=== PATIENT | female | born 1945 | race Caucasian/White ===

== ENCOUNTER → 2016-05-20 | Outpatient (CLI) | payer MEDICARE ==
[~2016-05-20] MED LIST: ALBU17IN INH; AMLO2.5T PO; ASPI81TA85 PO; ATOR1TAB21 PO; CALC600T7 PO; CELE-19 PO; CHLO125TA PO; CIPR500T89 PO; COMP1PAK PD; DIOV320T PO; FIBE1CHW2 PO; GABA-283 PO; LANS15CA PO; LIPI20TA PO; MELA0.02 PO; METF850T PO; MULT1TAB8 PO; OCUVTAB PO; OMEG100011 PO; SYMB80INH INH; TRAM50TA2 PO; VITA400C97 PO; XANA0.25 PO; ZANA4CAP PO; docusate OR
--- NOTE | 2016-05-22 09:30 | DEXA ---
AP SPINE L1 - L4 1.289 0.8 1.3 LT FEMUR TOTAL 0.970 -0.3 0.4 RT FEMUR TOTAL 0.941 -0.5 0.1 TOTAL BODY TOTAL OTHER DUAL FEMUR FRAX* ASSESSMENT Risk factors: Adult fracture. 10 year probability of fracture Major osteoporotic fracture 12.5 % Hip fracture 0.3 % COMMENTS: Normal bone densitometry of the spine. There is low bone density of the hips. FOLLOW-UP: Recommendation for the next bone density exam: 2 years. YARA
== END ==
LOC: M WHC 13:31
PROVIDERS: ATTEND Family Medicine
DX: Z13.820 Encounter for screening for osteoporosis (principal); M85.9 Disorder of bone density and structure, unspecified

== ENCOUNTER → 2016-05-22 | Outpatient (CLI) | payer MEDICARE | LOC: M ONCR 13:32 | PROVIDERS: ATTEND Radiology Radiation Oncology | DX: C50.811 Malignant neoplasm of overlapping sites of right female breast (principal) ==

== ENCOUNTER → 2016-05-27 | Outpatient (REF) | payer MEDICARE ==
[2016-05-27 19:52] LABS: ANION GAP 11 MEQ/L (8-16); BLOOD UREA NITROGEN 25 MG/DL (7-18); CALCIUM LEVEL 9.6 MG/DL (8.8-10.2); CARBON DIOXIDE LEVEL 27 MEQ/L (21-32); CHLORIDE LEVEL 102 MEQ/L (98-107); CREATININE FOR GFR 0.96 MG/DL (0.55-1.02); GLOMERULAR FILTRATION RATE > 60.0 (>39); GLUCOSE, FASTING 132 MG/DL (83-110); POTASSIUM SERUM 4.3 MEQ/L (3.5-5.1); SODIUM LEVEL 140 MEQ/L (136-145)
== END ==
LOC: M LABNEURO 16:53
PROVIDERS: ATTEND Internal Medicine Cardiovascular Disease
DX: E11.9 Type 2 diabetes mellitus without complications (principal); I10 Essential (primary) hypertension

== ENCOUNTER 2016-07-25 23:06 | Emergency (ER) | payer MEDICARE ==
[~2016-07-25] VITALS: Ht 157.5 cm; Wt 115.7 kg
[2016-07-25] MEDS ORDERED: NS 1,000 ML IV SCH (23:28)
[2016-07-25] MEDS ORDERED: ONDANSETRON 4MG/2ML VIAL (J2405) IV ONE (23:30)
[2016-07-25] MEDS ORDERED: KETOROLAC 30 MG/ML VIAL (J1885) IV ONE (23:30)
[2016-07-25] MEDS ORDERED: fentaNYL 100 MCG/2 ML INJECTION (J3010) IV ONE (23:30)
[2016-07-25 23:54] LABS: BASO % 0.4 % (0.0-1.0); EOS # 0.2 K/mm3 (0.0-0.50); EOS % 1.4 % (0.0-3.0); LARGE UNSTAINED CELL # 0.2 K/mm3 (0.0-0.4); LARGE UNSTAINED CELL % 1.4 % (0.0-4.0); LYMPH # 2.1 K/mm3 (1.5-4.5); LYMPH % 16.9 % (24.0-44.0); MEAN CORPUSCULAR HEMOGLOBIN 28.2 pg (27.0-33.0); MEAN CORPUSCULAR HGB CONC 33.3 g/dl (32.0-36.5); MEAN CORPUSCULAR VOLUME 84.5 fl (80.0-96.0); MONO # 0.4 K/mm3 (0.0-0.8); MONO % 3.4 % (0.0-5.0); NEUTROPHILS # 8.8 K/mm3 (1.8-7.7); NEUTROPHILS % 76.6 % (36.0-66.0); PLATELET COUNT, AUTOMATED 254 k/mm3 (150-450); RED CELL DISTRIBUTION WIDTH 13.6 % (11.5-14.5); WHITE BLOOD COUNT 11.5 K/mm3 (4.0-10.0)
[2016-07-25 23:56] LABS: INR 0.9
--- NOTE | 2016-07-26 | REPUSA ---
CT of the abdomen and pelvis without contrast Clinical statement: Pain. Technique: Multiple axial CT images were obtained from the base of the lungs to the floor of the pelv is utilizing 5 mm axial slices without administration of contrast. Coronal and sagittal reconstructio ns were also obtained. Comparison: 06/29/2015. Findings: Chest: The visualized lung bases are clear. Abdomen: The kidneys are normal in size bilaterally. There is moderate right-sided hydronephrosis and hydroureter, caused by a 1 mm obstructing stone at the right ureterovesical junction. The left renal collecting system is unremarkable. There is diffuse low attenuation of the hepatic parenchyma. The s pleen, pancreas, gallbladder and adrenal glands are unremarkable. The aorta demonstrates normal calib er and contour. There is no abdominal lymphadenopathy or ascites. Pelvis: The bowel is unremarkable, with no obstructive or inflammatory changes. The urinary bladder i s within normal limits. There is no pelvic lymphadenopathy or ascites. The other pelvic structures ap pear unremarkable. Bones: There are no suspicious osseous abnormalities seen. There is moderate degenerative disc diseas e at L5/S1 with small disc osteophyte complex. Impression: 1. Moderate right-sided hydronephrosis and hydroureter caused by a 1 mm obstructing stone at the righ t ureterovesical junction. 2. Diffuse fatty infiltration of the liver. 3. No obstructive or inflammatory bowel changes. 4. Stable moderate degenerative disc disease at L5/S1.
[2016-07-26 00:13] LABS: ALBUMIN 4.1 GM/DL (3.2-5.2); ALBUMIN/GLOBULIN RATIO 1.03 (1.00-1.93); BILIRUBIN,DIRECT 0.1 MG/DL (0.0-0.2); BILIRUBIN,TOTAL 0.5 MG/DL (0.2-1.0); CALCIUM LEVEL 9.9 MG/DL (8.8-10.2); CREATININE FOR GFR 1.27 MG/DL (0.55-1.02); GLOMERULAR FILTRATION RATE 44.3 (>39); TOTAL PROTEIN 8.1 GM/DL (6.4-8.2)
[2016-07-26] MEDS ORDERED: fentaNYL 100 MCG/2 ML INJECTION (J3010) IV ONE (00:15)
[2016-07-26] MEDS ORDERED: PERCOCET 5MG/325MG TAB PO ONE (01:15)
[2016-07-26] MEDS ORDERED: TAMSULOSIN 0.4 MG CAP PO ONE (01:15)
[2016-07-26 01:33] LABS: CALCIUM OXALATE CRYSTALS SMALL
[2016-07-26] MEDS ORDERED: PERC5TAB6 PO (01:49)
[2016-07-26] MEDS ORDERED: FLOM5CAP PO (01:49)
[2016-07-26 06:25] VITALS: BP 112/58
== END 2016-07-26 06:27 | disposition home or self-care (01) ==
LOC: EDBD 23:06 → M ED 23:06
DX: N20.1 Calculus of ureter (principal); I10 Essential (primary) hypertension; E11.9 Type 2 diabetes mellitus without complications; I25.10 Atherosclerotic heart disease of native coronary artery without angina pectoris; Z85.3 Personal history of malignant neoplasm of breast; Z79.899 Other long term (current) drug therapy; Z79.82 Long term (current) use of aspirin; Z79.84 Long term (current) use of oral hypoglycemic drugs; Z88.5 Allergy status to narcotic agent
CPT/HCPCS: 74176; 80048; 80076; 81001; 83690; 85025; 85610; 87086; 93041; 96361; 96374; 96375; 96376; 99285; J1885; J2405; J3010

== ENCOUNTER → 2016-08-02 | Outpatient (REF) | payer MEDICARE ==
[~2016-08-02] MED LIST changes: +FLOM5CAP PO; +PERC5TAB6 PO
== END ==
LOC: M SMT 16:52
PROVIDERS: ATTEND Nurse Practitioner Family
DX: N20.0 Calculus of kidney (principal)
CPT/HCPCS: 81001; G0463

== ENCOUNTER → 2016-08-05 | Outpatient (CLI) | payer MEDICARE ==
--- NOTE | 2016-08-05 14:51 | REP ---
RENAL AND BLADDER ULTRASOUND: Real-time sonographic evaluation of the kidneys performed and demonstrates both kidneys to be normal in size and echotexture, right kidney measuring 12.1 x 5.6 x 4.5 cm and left kidney 12.5 x 4.3 x 6.1 cm. There is no hydronephrosis bilaterally. Cyst in the upper pole of the right kidney measures 6 mm in diameter. A cyst in the upper pole of the left kidney measures 1.2 x 0.6 x 1.0 cm and a cyst in the lower pole of the left kidney measures 1.5 x 0.7 x 1.1 cm. No intrarenal calculi are seen. Urinary bladder measures 5.4 x 6.7 x 2.4 cm for a volume of 57 mL. No mass or calculus is seen in the bladder. There are bilateral ureteral jets in the urinary bladder with a Doppler color evaluation. Postvoid residual is 10 mL which is 18% of the original volume. IMPRESSION: Bilateral renal cysts. No hydronephrosis. Signed by Pj Slaughter MD 08/05/2016 04:45 P
== END ==
LOC: M RAD 10:57
PROVIDERS: ATTEND Nurse Practitioner Family
DX: N28.1 Cyst of kidney, acquired (principal); N20.0 Calculus of kidney; N13.30 Unspecified hydronephrosis

== ENCOUNTER → 2016-08-19 | Outpatient (REF) | payer MEDICARE | LOC: M LAB REF 16:35 | PROVIDERS: ATTEND Internal Medicine Medical Oncology | DX: C50.919 Malignant neoplasm of unspecified site of unspecified female breast (principal) ==

== ENCOUNTER → 2016-09-17 | Outpatient (CLI) | payer MEDICARE ==
[~2016-09-17] MED LIST changes: +ISOVUE-370 76% 100ML VIAL (Q9967) As Ordered ONE
--- NOTE | 2016-09-17 16:49 | REP ---
CT of the chest with IV contrast: Comparison is 07/19/2014. The the patient has had an interim bilateral mastectomies. The right breast mass identified on the previous study is no longer present. There are no lung masses, nodules, infiltrates or effusions. There are small calcified granulomas in the right lower lobe. These are unchanged. There is no focal or diffuse pleural thickening. There are no pleural effusions. No rib lesions are identified except for a hemangioma in the body of the approximate T8 vertebra, unchanged. No chest wall soft tissue lesions are identified. No adenopathy in the left axilla. There is no mediastinal, hilar or axillary lymphadenopathy. The thyroid gland is enlarged. The left lobe enlarged greater than the right. This is unchanged. The thoracic aorta is. Cardiac size is normal. The visualized upper abdominal contents are unchanged. Is a 15 mm right adrenal nodule, unchanged. There is a 14 mm cyst in the left lobe of the liver, unchanged. Impression: There are no pleural effusions. There is no focal or diffuse pleural thickening. No rib lesions are identified. No chest wall soft tissue lesions are identified. There have been interim bilateral mastectomies. There is an hemangioma in the approximate T8 vertebral body, unchanged. The thyroid gland is enlarged. The left lobe enlarged greater than the right. This is unchanged. Signed by Pj Armijo MD 09/17/2016 04:41 P
== END ==
LOC: M RAD 15:35
PROVIDERS: ATTEND Internal Medicine Medical Oncology
DX: R07.89 Other chest pain (principal); Z85.3 Personal history of malignant neoplasm of breast; E04.9 Nontoxic goiter, unspecified; D18.00 Hemangioma unspecified site
CPT/HCPCS: 71260; Q9967

== ENCOUNTER → 2016-09-27 | Outpatient (REF) | payer MEDICARE ==
[~2016-09-27] MED LIST changes: -ISOVUE-370 76% 100ML VIAL (Q9967) As Ordered ONE
[2016-09-27 13:52] LABS: ALBUMIN 3.6 GM/DL (3.2-5.2); ALBUMIN/GLOBULIN RATIO 1.09 (1.00-1.93); BILIRUBIN,TOTAL 0.3 MG/DL (0.2-1.0); CALCIUM LEVEL 9.5 MG/DL (8.8-10.2); CREATININE FOR GFR 1.11 MG/DL (0.55-1.02); GLOMERULAR FILTRATION RATE 51.7 (>39); POTASSIUM SERUM 4.8 MEQ/L (3.5-5.1); TOTAL PROTEIN 6.9 GM/DL (6.4-8.2)
== END ==
LOC: M SFHCADAM 09:01
PROVIDERS: ATTEND Family Medicine
DX: E78.2 Mixed hyperlipidemia (principal); E11.9 Type 2 diabetes mellitus without complications; Z68.41 Body mass index [BMI] 40.0-44.9, adult

== ENCOUNTER → 2016-11-20 | Outpatient (CLI) | payer MEDICARE ==
[~2016-11-20] MED LIST changes: -CELE-19 PO; +CELE1CAP4 PO; +CIPR-249 PO; -CIPR500T89 PO; -MELA0.02 PO; +MELA3TAB49 PO; -METF850T PO; +METF850T4 PO; +PERC5TAB12 PO; -PERC5TAB6 PO; +SPIR25TA2 PO; +ZOLP5TAB PO
--- NOTE | 2016-11-20 14:02 | RADONC ---
RADIATION ONCOLOGY FOLLOWUP NOTE DATE: 11/20/2016 CHART NUMBER: [id number] DIAGNOSIS: Right breast cancer. STAGE: IIA, T2N0M0. ECOG PERFORMANCE STATUS: 0. FOLLOWUP NOTE: Ms. 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 The patient presents today reporting that she is doing quite well with no complaints at this time related to her radiation therapy or disease. She has no chest wall or bone pain. The patient's review of systems is largely noncontributory. She denies nausea, vomiting, fevers, chills, night sweats, diplopia, headaches, anxiety or depression, anorexia, weight loss, visual disturbances, chest pain, urinary or bowel difficulties, bone pain, or neurological problems. PHYSICAL EXAMINATION: The patient is a well-developed, well-nourished, female in no acute distress. HEENT exam is normocephalic, atraumatic. Extraocular movements are intact. There is no palpable cervical, supraclavicular, infraclavicular, axillary, or inguinal lymphadenopathy present. Lungs are clear to auscultation and percussion. Heart has a regular rate and rhythm. Abdomen is benign with no hepatosplenomegaly, masses, or tenderness. The patient's bilateral chest yeh show well healed mastectomy scars present. There is no evidence of nodularity, ulceration, residual, or recurrent disease. Skeletal examination reveals no tenderness to pressure or percussion of the bony skeleton. Extremities reveal no clubbing, cyanosis, or edema. Neurologic exam is grossly intact, as is the remainder of the physical examination. ASSESSMENT: The patient is clinically SERGIO at this time and will be seen by us again in 1 year for further followup. She will also continue to be followed by her other physicians as well. cc: Breanna Wilcox MD, FACP Karlos Bedolla MD
== END ==
LOC: M ONCR 13:14
PROVIDERS: ATTEND Radiology Radiation Oncology
DX: C50.811 Malignant neoplasm of overlapping sites of right female breast (principal)

== ENCOUNTER → 2017-01-10 | Outpatient (REF) | payer MEDICARE ==
[2017-01-10 17:39] LABS: MEAN CORPUSCULAR HEMOGLOBIN 28.5 pg (27.0-33.0); MEAN CORPUSCULAR HGB CONC 33.1 g/dl (32.0-36.5); MEAN CORPUSCULAR VOLUME 86.2 fl (80.0-96.0); RED CELL DISTRIBUTION WIDTH 13.3 % (11.5-14.5); WHITE BLOOD COUNT 9.6 K/mm3 (4.0-10.0)
[2017-01-10 17:47] LABS: CALCIUM LEVEL 9.6 MG/DL (8.8-10.2); CREATININE FOR GFR 1.09 MG/DL (0.55-1.02); GLOMERULAR FILTRATION RATE 52.7 (>39); POTASSIUM SERUM 4.6 MEQ/L (3.5-5.1)
== END ==
LOC: M SFHCPLAZ 14:28
PROVIDERS: ATTEND Family Medicine
DX: R25.2 Cramp and spasm (principal); E11.9 Type 2 diabetes mellitus without complications; Z23 Encounter for immunization
CPT/HCPCS: 80048; 82043; 83036; 83735; 85027; 90662; G0008; G0463

== ENCOUNTER → 2017-01-13 | Outpatient (REF) | payer MEDICARE | LOC: M LAB REF 16:21 | PROVIDERS: ATTEND Internal Medicine Medical Oncology | DX: C50.919 Malignant neoplasm of unspecified site of unspecified female breast (principal) ==

== ENCOUNTER 2017-01-29 12:26 | Day surgery (SDC) | payer MEDICARE ==
[~2017-01-29] VITALS: Ht 157.5 cm; Wt 100.2 kg
[2017-01-29] MEDS ORDERED: LR 1,000 ML IV ONE (12:45)
[2017-01-29] MEDS ORDERED: PROPOFOL 200 MG/20 ML VIAL As Ordered ONE (13:57)
[2017-01-29] MEDS ORDERED: fentaNYL 100 MCG/2 ML INJECTION (J3010) As Ordered ONE (13:57)
[2017-01-29] MEDS ORDERED: LIDOCAINE 2% INJ 100 MG/5 ML SDV (FOR ANES.) As Ordered ONE (13:57)
[2017-01-29] MEDS ORDERED: MIDAZOLAM INJ 2 MG/2 ML VIAL (J2250) As Ordered ONE (13:57)
[2017-01-29] MEDS ORDERED: LIDOCAINE 1% SDV INJ 30 ML VIAL As Ordered ONE (14:31)
[2017-01-29 15:50] VITALS: BP 118/65
--- NOTE | 2017-01-29 20:54 | RO ---
DATE OF PROCEDURE: 01/29/2017 PREOPERATIVE DIAGNOSIS: Palpitations. POSTOPERATIVE DIAGNOSIS: Palpitations. FINDINGS: Palpitations. INDICATION: Palpitations. OPERATIVE PROCEDURE: Implantation of Medtronic Reveal LINQ implantable loop recorder. SURGEON: Dilan Fernandes MD CHEESE PANCAKE ROLLER: None. ANESTHESIA: 1% lidocaine local//monitored anesthetic care. SPECIMENS: None. ESTIMATED BLOOD LOSS: Less than 3 mL. BLOOD PRODUCTS REPLACED: None. DRAINS: None. COMPLICATIONS: None. DESCRIPTION OF OPERATION: The patient was prepped and draped over the left pectoral region. Lidocaine 1% was used for local anesthetic. An incision approximately 1 cm in length was made with a #15 blade approximately 1 inch lateral to the left parasternal border and at approximately the 4th interspace on the left. The loop recorder was placed parallel to the skin at about a 45 degree angle going caudal-left lateral. This position showed R wave amplitude of less than 0.2 mV and therefore was not satisfactory. The loop recorder was then reinserted going caudal and this position was also not satisfactory with R wave less than 0.2 mV. The loop recorder was then reinserted a third time, this time going approximately in an AVL direction (approximately 30 degrees above the horizontal in a left superior angle and this position was found to be satisfactory with R wave amplitude of 0.88 mV. The incision was approximated using subcuticular stitch consisting of continuous run of #4-0 Biosyn with the suture extending through the skin on both sides of the incision. This suture was used to approximate the incision line and was removed after the Dermabond was allowed to dry. Two layers of Dermabond was applied. After the Dermabond had dried the previously placed Biosyn suture was removed from the incision line. Mastisol was then placed above and below the incision, but not directly on the Dermabond. Then, two half Steri-Strips were applied over the incision line perpendicular to the direction of the incision line. The patient tolerated the procedure well without any immediate complications. The implantable loop recorder implanted was a Medtronic Reveal LINQ, model #LNQ11 with serial #[id number]. As noted above the initial R wave amplitudes of the final position accepted was 0.88 mV.
== END 2017-01-29 16:10 | disposition home or self-care (01) ==
LOC: M SDC 12:26
PROVIDERS: ATTEND Internal Medicine Cardiovascular Disease
DX: R00.2 Palpitations (principal); R00.0 Tachycardia, unspecified; I10 Essential (primary) hypertension; E11.9 Type 2 diabetes mellitus without complications; E66.01 Morbid (severe) obesity due to excess calories; K21.9 Gastro-esophageal reflux disease without esophagitis; I45.19 Other right bundle-branch block; J45.909 Unspecified asthma, uncomplicated; E78.1 Pure hyperglyceridemia; R06.83 Snoring; G47.33 Obstructive sleep apnea (adult) (pediatric); E04.1 Nontoxic single thyroid nodule; Z88.5 Allergy status to narcotic agent; Z79.899 Other long term (current) drug therapy; Z79.82 Long term (current) use of aspirin; Z79.84 Long term (current) use of oral hypoglycemic drugs; Z78.0 Asymptomatic menopausal state; Z98.51 Tubal ligation status; Z92.3 Personal history of irradiation; Z92.21 Personal history of antineoplastic chemotherapy; Z85.3 Personal history of malignant neoplasm of breast; Z96.1 Presence of intraocular lens
CPT/HCPCS: 33282; C1764; J0690; J2250; J3010

== ENCOUNTER → 2017-03-18 | Outpatient (CLI) | payer MEDICARE ==
[2017-03-18 16:22] LABS: CALCIUM LEVEL 9.4 MG/DL (8.8-10.2); CREATININE FOR GFR 1.01 MG/DL (0.55-1.02); GLOMERULAR FILTRATION RATE 57.5 (>39); MAGNESIUM LEVEL 1.8 MG/DL (1.8-2.4)
== END ==
LOC: M LAB 15:00
PROVIDERS: ATTEND Internal Medicine Cardiovascular Disease
DX: I49.3 Ventricular premature depolarization (principal)

== ENCOUNTER → 2017-04-01 | Outpatient (CLI) | payer MEDICARE ==
--- NOTE | 2017-04-01 16:00 | REP ---
REASON: Thyroid nodule. No known priors for comparison. Right lobe of the thyroid measures 6 x 1.7 x 2.9 cm and left measures 6.9 x 2.7 x 3.7 cm. The isthmus measures 1 cm. In the isthmus on the right there is a 2.5 x 1.4 x 2.4 cm sized nodule. Two nodules are seen in the right lobe, one measuring 1.1 x 0.4 x 1.1 cm and the other 1.1 x 2.5 x 1.9 cm. In the left lobe of the thyroid gland there are three nodules one measuring 1 cm in its greatest dimension, another measuring 2.4 x 1.9 x 2.2 cm and the largest in the left lobe measuring 3.5 x 2.9 x 3.3 cm. This large nodule has an echogenic focus within it consistent with calcific deposition. IMPRESSION: Thyromegaly and multiple nodules as described above consistent with multinodular goiter, correlate clinically and if necessary obtain radioiodide 123 thyroid scintigraphy since ultrasonography cannot rule out the possibility of the thyroid carcinoma. Signed by Jf Gasca DO 04/01/2017 04:57 P
== END ==
LOC: M RAD 13:47
PROVIDERS: ATTEND Family Medicine
DX: E04.1 Nontoxic single thyroid nodule (principal)

== ENCOUNTER → 2017-06-27 | Outpatient (REF) | payer MEDICARE ==
[2017-06-27 21:59] LABS: ESTIMATED AVERAGE GLUCOSE 137 MG/DL (60-110); HEMOGLOBIN A1c 6.4 %
== END ==
LOC: M SFHCADAM 19:27
DX: E11.9 Type 2 diabetes mellitus without complications (principal)
CPT/HCPCS: 83036

== ENCOUNTER → 2017-06-30 | Outpatient (REF) | payer MEDICARE | LOC: M SFHCLERA 11:53 | DX: D22.61 Melanocytic nevi of right upper limb, including shoulder (principal); L81.4 Other melanin hyperpigmentation | CPT/HCPCS: 88305 ==

== ENCOUNTER → 2017-07-14 | Outpatient (REF) | payer MEDICARE ==
[2017-07-15 10:36] LABS: CA15-3 ANTIGEN 12.7 U/ML (<32.4)
== END ==
LOC: M LAB REF 16:28
DX: C50.919 Malignant neoplasm of unspecified site of unspecified female breast (principal)
CPT/HCPCS: 86300

== ENCOUNTER → 2017-08-28 | Outpatient (REF) | payer MEDICARE | LOC: M LAB REF 12:08 | DX: B07.9 Viral wart, unspecified (principal) | CPT/HCPCS: 88305 ==

== ENCOUNTER 2017-11-21 11:37 | Inpatient (IN) | payer MEDICARE ==
[2017-11-21] MEDS: NS 1,000 ML IV ×3 (13:53→20:36)
[2017-11-21 13:58] LABS: HEMATOCRIT 39.1 % (36.0-47.0); HEMOGLOBIN 12.5 g/dl (12.0-15.5); MEAN CORPUSCULAR HEMOGLOBIN 28.7 pg (27.0-33.0); MEAN CORPUSCULAR VOLUME 89.9 fl (80.0-96.0); PLATELET COUNT, AUTOMATED 239 10^3/uL (150-450); RED BLOOD COUNT 4.35 10^6/uL (4.00-5.40); RED CELL DISTRIBUTION WIDTH 13.6 % (11.5-14.5); WHITE BLOOD COUNT 9.5 10^3/uL (4.0-10.0)
[2017-11-21 14:18] LABS: ANION GAP 5 MEQ/L (8-16); BLOOD UREA NITROGEN 29 MG/DL (7-18); CALCIUM LEVEL 9.7 MG/DL (8.8-10.2); CARBON DIOXIDE LEVEL 29 MEQ/L (21-32); CHLORIDE LEVEL 105 MEQ/L (98-107); CREATININE FOR GFR 1.15 MG/DL (0.55-1.30); GLOMERULAR FILTRATION RATE 49.4 (>39); GLUCOSE, FASTING 93 MG/DL (70-100); POTASSIUM SERUM 4.7 MEQ/L (3.5-5.1); SODIUM LEVEL 139 MEQ/L (136-145)
[2017-11-21] MEDS ORDERED: DEXTROSE 50% 50 ML SYRINGE IV (19:15)
[2017-11-21] MEDS ORDERED: ALPRAZolam 0.25 MG TAB PO (19:15)
[2017-11-21] MEDS ORDERED: GLUCAGON FOR INJ 1 MG VIAL (J1610) SC (19:15)
[2017-11-21] MEDS ORDERED: GLUCOSE 4 GM CHEW TABLET PO (19:15)
[2017-11-21] MEDS ORDERED: zolPIDEM TARTRATE 5 MG TAB PO (19:15)
[2017-11-21] MEDS: ENOXAPARIN 40 MG/0.4 ML SYRINGE (J1650) SC (20:31)
[2017-11-21] MEDS: GABAPENTIN 300 MG CAP PO (20:32)
[2017-11-21] MEDS: ATORVASTATIN 20 MG TAB PO (20:32)
[2017-11-21] MEDS: ASPIRIN 81 MG ENTERIC TAB PO (20:32)
[2017-11-21] MEDS: MAGNESIUM CHLORIDE 64 MG TABCR (SLO MAG) PO (20:54)
[2017-11-21] MEDS: CALCIUM/VITAMIN D 500 MG TAB PO (20:54)
[2017-11-21] MEDS: CelecoXIB (CeleBREX) 100 MG CAP PO (20:54)
[2017-11-21] MEDS: DOCUSATE SODIUM 100 MG CAP PO (23:02)
[2017-11-21] MEDS: tiZANidine 4 MG TAB PO (23:02)
[2017-11-22] MEDS: SYMBICORT 80/4.5MCG INHALER 6GM INH ×3 (01:24→20:32)
[2017-11-22 06:27] LABS: HEMATOCRIT 36.1 % (36.0-47.0); HEMOGLOBIN 11.4 g/dl (12.0-15.5); MEAN CORPUSCULAR HEMOGLOBIN 28.3 pg (27.0-33.0); MEAN CORPUSCULAR HGB CONC 31.6 g/dl (32.0-36.5); MEAN CORPUSCULAR VOLUME 89.6 fl (80.0-96.0); PLATELET COUNT, AUTOMATED 204 10^3/uL (150-450); RED BLOOD COUNT 4.03 10^6/uL (4.00-5.40); RED CELL DISTRIBUTION WIDTH 13.6 % (11.5-14.5); WHITE BLOOD COUNT 6.8 10^3/uL (4.0-10.0)
[2017-11-22 06:52] LABS: ANION GAP 6 MEQ/L (8-16); BLOOD UREA NITROGEN 20 MG/DL (7-18); CARBON DIOXIDE LEVEL 27 MEQ/L (21-32); CHLORIDE LEVEL 109 MEQ/L (98-107); GLOMERULAR FILTRATION RATE > 60.0 (>39); GLUCOSE, FASTING 96 MG/DL (70-100); MAGNESIUM LEVEL 1.9 MG/DL (1.8-2.4); POTASSIUM SERUM 4.4 MEQ/L (3.5-5.1); SODIUM LEVEL 142 MEQ/L (136-145)
[2017-11-22] MEDS: PANTOPRAZOLE 40MG TAB (PROTONIX) PO (08:31)
[2017-11-22] MEDS: CALCIUM/VITAMIN D 500 MG TAB PO ×2 (08:31→21:08)
[2017-11-22] MEDS: CelecoXIB (CeleBREX) 100 MG CAP PO ×2 (08:31→21:08)
[2017-11-22] MEDS: GABAPENTIN 300 MG CAP PO ×2 (08:31→21:09)
[2017-11-22] MEDS: OCUVITE 1 TAB PO (08:31)
[2017-11-22] MEDS: MAGNESIUM CHLORIDE 64 MG TABCR (SLO MAG) PO ×2 (08:32→21:08)
[2017-11-22] MEDS: ENOXAPARIN 40 MG/0.4 ML SYRINGE (J1650) SC (08:32)
[2017-11-22] MEDS: NS 1,000 ML IV (08:33)
[2017-11-22 11:41] LABS: BEDSIDE GLUCOSE 96 MG/DL (83-110)
[2017-11-22] MEDS: LACTATED RINGER'S 1000 ML IV (11:53)
[2017-11-22 17:29] LABS: BEDSIDE GLUCOSE 130 MG/DL (83-110)
[2017-11-22] MEDS: DOCUSATE SODIUM 100 MG CAP PO (21:09)
[2017-11-22] MEDS: tiZANidine 4 MG TAB PO (21:09)
[2017-11-22] MEDS: ASPIRIN 81 MG ENTERIC TAB PO (21:09)
[2017-11-22] MEDS: ATORVASTATIN 20 MG TAB PO (21:09)
[2017-11-23 05:59] LABS: HEMATOCRIT 35.7 % (36.0-47.0); HEMOGLOBIN 11.7 g/dl (12.0-15.5); MEAN CORPUSCULAR HEMOGLOBIN 28.7 pg (27.0-33.0); MEAN CORPUSCULAR HGB CONC 32.8 g/dl (32.0-36.5); MEAN CORPUSCULAR VOLUME 87.7 fl (80.0-96.0); PLATELET COUNT, AUTOMATED 214 10^3/uL (150-450); RED BLOOD COUNT 4.07 10^6/uL (4.00-5.40); RED CELL DISTRIBUTION WIDTH 13.4 % (11.5-14.5); WHITE BLOOD COUNT 6.4 10^3/uL (4.0-10.0)
[2017-11-23 06:22] LABS: ANION GAP 6 MEQ/L (8-16); BLOOD UREA NITROGEN 21 MG/DL (7-18); CALCIUM LEVEL 8.7 MG/DL (8.8-10.2); CARBON DIOXIDE LEVEL 26 MEQ/L (21-32); CHLORIDE LEVEL 109 MEQ/L (98-107); CREATININE FOR GFR 0.97 MG/DL (0.55-1.30); GLOMERULAR FILTRATION RATE > 60.0 (>39); GLUCOSE, FASTING 105 MG/DL (70-100); MAGNESIUM LEVEL 1.9 MG/DL (1.8-2.4); POTASSIUM SERUM 4.3 MEQ/L (3.5-5.1); SODIUM LEVEL 141 MEQ/L (136-145)
[2017-11-23] MEDS: SYMBICORT 80/4.5MCG INHALER 6GM INH ×2 (07:19→20:41)
[2017-11-23] MEDS: MAGNESIUM CHLORIDE 64 MG TABCR (SLO MAG) PO ×2 (09:00→20:44)
[2017-11-23] MEDS: OCUVITE 1 TAB PO (09:42)
[2017-11-23] MEDS: CALCIUM/VITAMIN D 500 MG TAB PO ×2 (09:42→20:45)
[2017-11-23] MEDS: GABAPENTIN 300 MG CAP PO ×2 (09:42→20:44)
[2017-11-23] MEDS: PANTOPRAZOLE 40MG TAB (PROTONIX) PO (09:43)
[2017-11-23] MEDS: CelecoXIB (CeleBREX) 100 MG CAP PO ×2 (09:43→20:44)
[2017-11-23] MEDS: ENOXAPARIN 40 MG/0.4 ML SYRINGE (J1650) SC (09:43)
[2017-11-23 11:59] LABS: BEDSIDE GLUCOSE 111 MG/DL (83-110)
[2017-11-23 16:38] LABS: BEDSIDE GLUCOSE 203 MG/DL (83-110)
[2017-11-23 20:15] LABS: BEDSIDE GLUCOSE 185 MG/DL (83-110)
[2017-11-23] MEDS: DOCUSATE SODIUM 100 MG CAP PO (20:44)
[2017-11-23] MEDS: ATORVASTATIN 20 MG TAB PO (20:44)
[2017-11-23] MEDS: ASPIRIN 81 MG ENTERIC TAB PO (20:44)
[2017-11-23] MEDS: tiZANidine 4 MG TAB PO (20:45)
[2017-11-24 06:10] LABS: HEMATOCRIT 37.6 % (36.0-47.0); HEMOGLOBIN 12.2 g/dl (12.0-15.5); MEAN CORPUSCULAR HEMOGLOBIN 28.3 pg (27.0-33.0); MEAN CORPUSCULAR HGB CONC 32.4 g/dl (32.0-36.5); MEAN CORPUSCULAR VOLUME 87.2 fl (80.0-96.0); PLATELET COUNT, AUTOMATED 216 10^3/uL (150-450); RED BLOOD COUNT 4.31 10^6/uL (4.00-5.40); RED CELL DISTRIBUTION WIDTH 13.4 % (11.5-14.5); WHITE BLOOD COUNT 6.9 10^3/uL (4.0-10.0)
[2017-11-24 06:21] LABS: ANION GAP 9 MEQ/L (8-16); BLOOD UREA NITROGEN 23 MG/DL (7-18); CALCIUM LEVEL 8.9 MG/DL (8.8-10.2); CARBON DIOXIDE LEVEL 24 MEQ/L (21-32); CHLORIDE LEVEL 109 MEQ/L (98-107); CREATININE FOR GFR 0.99 MG/DL (0.55-1.30); GLOMERULAR FILTRATION RATE 58.7 (>39); GLUCOSE, FASTING 117 MG/DL (70-100); POTASSIUM SERUM 4.4 MEQ/L (3.5-5.1); SODIUM LEVEL 142 MEQ/L (136-145)
[2017-11-24] MEDS: SYMBICORT 80/4.5MCG INHALER 6GM INH (07:41)
[2017-11-24] MEDS: CelecoXIB (CeleBREX) 100 MG CAP PO (08:14)
[2017-11-24] MEDS: OCUVITE 1 TAB PO (08:14)
[2017-11-24] MEDS: PANTOPRAZOLE 40MG TAB (PROTONIX) PO (08:15)
[2017-11-24] MEDS: CALCIUM/VITAMIN D 500 MG TAB PO (08:15)
[2017-11-24] MEDS: GABAPENTIN 300 MG CAP PO (08:15)
[2017-11-24] MEDS: MAGNESIUM CHLORIDE 64 MG TABCR (SLO MAG) PO (08:16)
[2017-11-24] MEDS: ENOXAPARIN 40 MG/0.4 ML SYRINGE (J1650) SC (08:16)
[2017-11-24 11:41] LABS: BEDSIDE GLUCOSE 178 MG/DL (83-110)
== END 2017-11-24 14:07 | disposition home or self-care (01) | DRG 918 ==
LOC: M ED 11:37 → M ED INP 21:07 → M MSPAV 22:45
PROVIDERS: Hospitalist
DX: T46.1X1A Poisoning by calcium-channel blockers, accidental (unintentional), initial encounter (principal); Z68.41 Body mass index [BMI] 40.0-44.9, adult; I11.9 Hypertensive heart disease without heart failure; E55.9 Vitamin D deficiency, unspecified; E78.2 Mixed hyperlipidemia; E04.9 Nontoxic goiter, unspecified; E66.9 Obesity, unspecified; G47.33 Obstructive sleep apnea (adult) (pediatric); G47.00 Insomnia, unspecified; F41.9 Anxiety disorder, unspecified; E11.9 Type 2 diabetes mellitus without complications; J45.909 Unspecified asthma, uncomplicated; M17.0 Bilateral primary osteoarthritis of knee; Z79.82 Long term (current) use of aspirin; Z79.84 Long term (current) use of oral hypoglycemic drugs; Z79.899 Other long term (current) drug therapy; Z88.5 Allergy status to narcotic agent; Z79.51 Long term (current) use of inhaled steroids; Z85.3 Personal history of malignant neoplasm of breast; Z98.86 Personal history of breast implant removal

== ENCOUNTER → 2017-12-17 | Outpatient (CLI) | payer MEDICARE | LOC: M ONCR 14:49 | DX: C50.811 Malignant neoplasm of overlapping sites of right female breast (principal) | CPT/HCPCS: G0463 ==

== ENCOUNTER → 2018-01-19 | Outpatient (REF) | payer MEDICARE ==
[2018-01-20 09:40] LABS: CA15-3 ANTIGEN 24.8 U/ML (<32.4)
== END ==
LOC: M LAB REF 17:50
DX: Z85.3 Personal history of malignant neoplasm of breast (principal)
CPT/HCPCS: 86300

== ENCOUNTER → 2018-01-22 | Outpatient (REF) | payer MEDICARE ==
[2018-01-22 13:08] LABS: ESTIMATED AVERAGE GLUCOSE 131 MG/DL (60-110); HEMOGLOBIN A1c 6.2 %
[2018-01-22 14:12] LABS: ALBUMIN/GLOBULIN RATIO 1.25 (1.00-1.93); ALKALINE PHOSPHATASE 81 U/L (45-117); ALT/SGPT 44 U/L (12-78); ANION GAP 8 MEQ/L (8-16); AST/SGOT 20 U/L (7-37); BILIRUBIN,TOTAL 0.3 MG/DL (0.2-1.0); BLOOD UREA NITROGEN 22 MG/DL (7-18); CALCIUM LEVEL 9.8 MG/DL (8.8-10.2); CARBON DIOXIDE LEVEL 29 MEQ/L (21-32); CHLORIDE LEVEL 102 MEQ/L (98-107); CHOLESTEROL LEVEL 190 MG/DL (<200); CHOLESTEROL RISK RATIO 3.958 (<5); GLUCOSE, FASTING 121 MG/DL (70-100); HDL CHOLESTEROL 48 MG/DL (>40); LDL CHOLESTEROL 79 MG/DL (<100); NON-HDL-C 142 MG/DL; POTASSIUM SERUM 4.9 MEQ/L (3.5-5.1); SODIUM LEVEL 139 MEQ/L (136-145); TOTAL PROTEIN 7.2 GM/DL (6.4-8.2); TRIGLYCERIDES LEVEL 315 MG/DL (<150)
[2018-01-22 18:56] LABS: CREATININE, URINE 76.2 MG/DL; MALB URINE SIEMENS 6.1 MG/L; MAU/CREAT RATIO 8.1 MCG/MG (0.0-30.0)
== END ==
LOC: M SFHCADAM 09:19
DX: E11.9 Type 2 diabetes mellitus without complications (principal); E04.2 Nontoxic multinodular goiter; E78.2 Mixed hyperlipidemia
CPT/HCPCS: 80053

== ENCOUNTER → 2018-02-11 | Outpatient (CLI) | payer MEDICARE | LOC: M ADAMS 14:16 | DX: S92.355D Nondisplaced fracture of fifth metatarsal bone, left foot, subsequent encounter for fracture with routine healing (principal); I51.7 Cardiomegaly; S80.01XA Contusion of right knee, initial encounter; S20.211A Contusion of right front wall of thorax, initial encounter; M79.672 Pain in left foot; X58.XXXA Exposure to other specified factors, initial encounter; Y92.9 Unspecified place or not applicable | CPT/HCPCS: 71101 ==

== ENCOUNTER → 2018-05-08 | Outpatient (CLI) | payer MEDICARE ==
[~2018-05-08] MED LIST changes: -AMLO2.5T PO; +AMLO2.5T3 PO; +ATOR40TA75 PO; +CHLO25TA PO; +DOCU100C16 PO; +FLOM0.4C39 PO; -FLOM5CAP PO; +FLON1SPR; -GABA-283 PO; +GABA-843 PO; +GABA-845 PO; +IRBE300T10 PO; +MAGN64TASA PO; +MELA5TAB20 PO; +SPIR-10 PO; -SPIR25TA2 PO; +TIZA-208 PO; +UNIS25TA3 PO
[2018-05-08 13:17] LABS: HEMOGLOBIN A1c 6.6 %
== END ==
LOC: M LAB 11:52
PROVIDERS: ATTEND Family Medicine
DX: F43.21 Adjustment disorder with depressed mood (principal); E11.9 Type 2 diabetes mellitus without complications; Z79.84 Long term (current) use of oral hypoglycemic drugs

== ENCOUNTER → 2018-06-11 | Outpatient (REF) | payer MEDICARE ==
[2018-06-11 19:56] LABS: ALBUMIN 4.3 GM/DL (3.2-5.2); BILIRUBIN,DIRECT 0.1 MG/DL (0.0-0.2); BILIRUBIN,TOTAL 0.4 MG/DL (0.2-1.0); TOTAL PROTEIN 7.9 GM/DL (6.4-8.2)
== END ==
LOC: M SFHCADAM 10:33
PROVIDERS: ATTEND Family Medicine
DX: L73.8 Other specified follicular disorders (principal)

== ENCOUNTER → 2018-06-24 | Outpatient (CLI) | payer MEDICARE ==
--- NOTE | 2018-06-29 09:29 | RADONC ---
RADIATION ONCOLOGY FOLLOWUP NOTE DATE: 06/24/2018 CHART NUMBER: [id number] DIAGNOSIS: Right breast cancer. STAGE: IIA, T2N0M0. ECOG PERFORMANCE STATUS: 0. FOLLOWUP NOTE: Ms. 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 The patient presents today reporting that she is doing quite well with no complaints at this time related to her radiation therapy or disease. She is having no breast or bone pain. The patient's review of systems is noncontributory. She denies nausea, vomiting, fevers, chills, night sweats, diplopia, headaches, anxiety or depression, anorexia, weight loss, visual disturbances, chest pain, urinary or bowel difficulties, bone pain, or neurological problems. PHYSICAL EXAMINATION: The patient is a well-developed, well-nourished, female in no acute distress. HEENT exam is normocephalic, atraumatic. Extraocular movements are intact. There is no palpable cervical, supraclavicular, infraclavicular, axillary, or inguinal lymphadenopathy present. Lungs are clear to auscultation and percussion. Heart has a regular rate and rhythm. Abdomen is benign with no hepatosplenomegaly, masses, or tenderness. Breast examination reveals no masses or discharge bilaterally. Skeletal examination reveals no tenderness to pressure or percussion of the bony skeleton. Extremities reveal no clubbing, cyanosis, or edema. Neurologic exam is grossly intact, as is the remainder of the physical examination. ASSESSMENT: The patient is clinically SERGIO at this time and it is continuing her close followup with her other physicians. In light of this I have discharged her from our followup except on a as needed basis. cc: MD Karlos Jhaveri MD
== END ==
LOC: M ONCR 13:31
PROVIDERS: ATTEND Radiology Radiation Oncology
DX: C50.811 Malignant neoplasm of overlapping sites of right female breast (principal)

== ENCOUNTER → 2018-06-29 | Outpatient (REF) | payer MEDICARE ==
[2018-06-29 16:12] LABS: APPEARANCE, URINE CLEAR (CLEAR); BACTERIA, URINE AUTO NEGATIVE (NEGATIVE); BILIRUBIN, URINE AUTO NEGATIVE (NEGATIVE); BLOOD, URINE BLOOD NEGATIVE (NEGATIVE); COLOR, URINE YELLOW (YELLOW); GLUCOSE, URINE (UA) AUTO NEGATIVE (NEGATIVE); KETONE, URINE AUTO NEGATIVE (NEGATIVE); LEUKOCYTE ESTERASE, URINE AUTO NEGATIVE (NEGATIVE); MUCUS, URINE SMALL (NEGATIVE); NITRITE, URINE AUTO NEGATIVE (NEGATIVE); PROTEIN, URINE AUTO NEGATIVE (NEGATIVE); RBC, URINE AUTO 1 /HPF (0-3); SPECIFIC GRAVITY URINE AUTO 1.018 (1.002-1.035); SQUAMOUS EPITHELIAL CELL UR AU 1 /HPF (0-6); UROBILINOGEN, URINE AUTO 0.2 mg/dL (0.0-2.0); WBC, URINE AUTO 3 /HPF (0-3)
== END ==
LOC: M SFHCPLAZ 15:32
PROVIDERS: ATTEND Family Medicine
DX: M54.5 Low back pain (principal)
CPT/HCPCS: 81001; 81002; G0463

== ENCOUNTER → 2018-07-03 | Outpatient (CLI) | payer MEDICARE ==
--- NOTE | 2018-07-03 13:46 | REP ---
CT ABDOMEN AND PELVIS WITHOUT CONTRAST: CT abdomen and pelvis performed without IV contrast. Sagittal and coronal reconstruction images are performed. In the visualized lung bases, there are two tiny calcified granulomas in each lower lobe as well as mild interstitial fibrotic changes. The liver demonstrates heterogeneous low density diffusely suggesting diffuse fatty infiltration. Evaluation for underlying masses is limited without IV contrast. However, there is possibly a subtle nodule in the anterior right lobe on image 24 1.7 cm in diameter and another in the lateral aspect of the right lobe at about the same level measuring about 1.5 cm in diameter. A little more inferiorly, a nodule is suspected on image #31 in the medial segment of the left lobe at 2.2 cm in diameter. There is an adjacent nodule just inferior to that in the left lobe 1.6 cm in diameter, which is measuring fluid density and probably represents a cyst. More inferiorly in the right lobe, another possible subtle nodule is seen measuring 1.5 cm in diameter, on image #39. The gallbladder is grossly unremarkable. There is no evidence of biliary dilatation. The spleen and left adrenal are unremarkable. The right adrenal again demonstrates a small adenoma of the posterior limb unchanged since the prior CT of 09/17/2016. Pancreas and kidneys are grossly unremarkable except for a small cyst of the lower pole of the left kidney. There is no hydroureteronephrosis. There is moderate atherosclerotic calcification of the abdominal aorta without aneurysm. There is no adenopathy, free air or free fluid. No bowel wall thickening is seen. There is dense material in the appendix with possible small appendicoliths. There is no acute appendicitis. No pelvic mass is seen. Urinary bladder is mildly distended and grossly unremarkable. Small umbilical hernia contains fat. IMPRESSION: Possible new liver nodules, possible new metastatic disease to the liver. Recommend CT or MRI of the liver with and without contrast. Otherwise, there are stable chronic changes as discussed in detail above. Electronically Signed by Pj Slaughter MD 07/06/2018 11:24 A
== END ==
LOC: M RAD 12:20
PROVIDERS: ATTEND Student in an Organized Health Care Education/Training Program
DX: D35.1 Benign neoplasm of parathyroid gland (principal); N28.1 Cyst of kidney, acquired; I70.0 Atherosclerosis of aorta; K42.9 Umbilical hernia without obstruction or gangrene

== ENCOUNTER → 2018-07-07 | Outpatient (REF) | payer MEDICARE ==
[2018-07-07 13:44] LABS: CALCIUM LEVEL 9.4 MG/DL (8.8-10.2); CREATININE FOR GFR 1.13 MG/DL (0.55-1.30); GLOMERULAR FILTRATION RATE 50.4 (>39); POTASSIUM SERUM 4.9 MEQ/L (3.5-5.1)
== END ==
LOC: M SFHCPLAZ 10:33
PROVIDERS: ATTEND Student in an Organized Health Care Education/Training Program
DX: R93.5 Abnormal findings on diagnostic imaging of other abdominal regions, including retroperitoneum (principal)

== ENCOUNTER → 2018-07-10 | Outpatient (CLI) | payer MEDICARE ==
[~2018-07-10] MED LIST changes: +GASTROGRAFIN SOLUTION 30ML (Q9963) As Ordered ONE; +ISOVUE-370 76% 125ML VIAL (Q9967 PER ML) As Ordered ONE
--- NOTE | 2018-07-11 07:44 | REP ---
CT ABDOMEN AND PELVIS WITH IV AND ORAL CONTRAST: TECHNIQUE: Axial contrast enhanced images from the lung bases to the pubic symphysis using 100 mL Isovue 370 intravenous contrast material with multiplanar reformations. COMPARISON: CT without contrast 07/03/2018 Once again the visualized lung bases demonstrate mild fibrotic change as well as a calcified granuloma bilaterally. The liver demonstrates several nodules. A nodule in the lateral left lobe demonstrates mild heterogeneous enhancement on arterial phase images and on more delayed images, appears to fill in with contrast suggesting that this may represent hemangioma. This measures 1.9 cm in diameter. A little more inferiorly in the medial segment of the left lobe an anterior nodule measures about 1.5 cm in diameter and measures close to fluid density probably representing a cyst. Just posterior to that, a slightly more dense nodule measures 1.8 cm. This may mildly enhance and is therefore, somewhat suspicious. The previous small cyst in the right lobe of the liver adjacent to the gallbladder. The spleen, adrenals, pancreas, and kidneys are unremarkable, except for a small cyst in the lower pole of the left kidney measuring 1.2 cm. There is no hydronephrosis bilaterally. There is moderate atherosclerotic calcification in the abdominal aorta without aneurysm. There is no adenopathy. There is no free air or free fluid. No bowel wall thickening is seen. There is a small umbilical hernia containing fat. I see no pelvic mass. Urinary bladder is unremarkable. IMPRESSION: Several liver nodules present. A nodule in the lateral left lobe superiorly measures 1.9 cm in diameter. There is an enhancement pattern suggesting but not diagnostic of hemangioma. More inferiorly in the medial segment of the left lobe, there appears to be a cyst 1.5 cm in diameter. There is an adjacent nodule, which is greater than fluid density and appears to mildly enhance and is, therefore, suspicious for possible metastatic lesion. Stable right adrenal adenoma. Small left renal cyst. The liver lesions could be better characterized with MRI with and without contrast. Electronically Signed by Pj Slaughter MD 07/15/2018 09:39 A
== END ==
LOC: M RAD 12:36
PROVIDERS: ATTEND Student in an Organized Health Care Education/Training Program
DX: R93.5 Abnormal findings on diagnostic imaging of other abdominal regions, including retroperitoneum (principal); N28.1 Cyst of kidney, acquired; K76.89 Other specified diseases of liver; I70.0 Atherosclerosis of aorta; K42.9 Umbilical hernia without obstruction or gangrene; D35.01 Benign neoplasm of right adrenal gland
CPT/HCPCS: 74177; Q9963; Q9967

== ENCOUNTER → 2018-07-23 | Outpatient (CLI) | payer MEDICARE ==
[~2018-07-23] MED LIST changes: -GASTROGRAFIN SOLUTION 30ML (Q9963) As Ordered ONE; -ISOVUE-370 76% 125ML VIAL (Q9967 PER ML) As Ordered ONE; +LIDOCAINE 1% MDV 20ML VIAL As Ordered ONE; -TIZA-208 PO; +TIZA4TAB4 PO
--- NOTE | 2018-07-23 16:25 | REP ---
ULTRASOUND-GUIDED LIVER BIOPSY The procedure was performed under the direct supervision of Dr. slaughter. The patient has a history of a nodule in the left lateral lobe superiorly measuring 1.9 cm seen on a previous CT scan dated 07/10/2018. The risks and benefits of the procedure were explained to the patient and informed consent was obtained. The liver nodule was localized using ultrasound guidance. The skin was prepped and draped in a sterile fashion. 1% lidocaine was used as a local anesthetic. Using ultrasound guidance a 19/20 gauge coaxial needle biopsy system was inserted and advanced into the nodule. Six core biopsy samples and 1 ml of reddish fluid was obtained and sent to lab for analysis. The patient tolerated the procedure well and there were no immediate complications. After the appropriate amount of monitored convalescence the patient was discharged from the department. Reviewed by GARY Irizarry 07/23/2018 03:56 P Electronically Signed by Pj Slaughter MD 07/23/2018 04:16 P
== END ==
LOC: M RADPRO 10:36
PROVIDERS: ATTEND Obstetrics & Gynecology
DX: C78.7 Secondary malignant neoplasm of liver and intrahepatic bile duct (principal); Z85.3 Personal history of malignant neoplasm of breast; Z88.5 Allergy status to narcotic agent; Z79.899 Other long term (current) drug therapy

== ENCOUNTER → 2018-08-04 | Outpatient (CLI) | payer MEDICARE ==
[~2018-08-04] MED LIST changes: -LIDOCAINE 1% MDV 20ML VIAL As Ordered ONE
--- NOTE | 2018-08-05 06:34 | REP ---
PET/CT: History: Right breast cancer. Status post bilateral mastectomy, neoadjuvant chemotherapy and chest wall radiation. Liver metastases. Recent needle biopsy of the liver lesion positive for metastatic carcinoma consistent with breast primary. Comparisons: CT abdomen and pelvis July 10, 2018. TECHNIQUE: 62 minutes following the intravenous injection of a 10.4 mCi dose of F-18 FDG, three-dimensional PET scintigraphy is acquired from the skull base to the proximal thighs. Triplanar noncontrast CT scanning is acquired through the same anatomic range for attenuation correction, and image registration with scan parameters optimized to minimize radiation exposure to the patient. PET scintigraphy and CT datasets were fused and displayed on a workstation with multiplanar and projection display capability. PET/CT Findings: PET scintigraphy confirms the presence of multiple hypermetabolic liver nodules consistent with metastases. The largest and most avid of these is in the left lobe measuring 4.2 cm in greatest diameter. Maximum standard uptake value is 7.75 in this lesion. The smaller less avid lesions range in maximum SUV value up to 6.65. Background normal liver parenchyma has maximum standard uptake value of approximately 3.5. There are 5 or 6 definite metastatic lesions in the liver. No other abnormal hypermetabolic uptake is seen in the abdomen or pelvis. No abnormal skeletal hypermetabolic uptake is seen. No abnormal hypermetabolic uptake is seen in the chest wall at either post mastectomy site. No axillary hypermetabolic ignacio uptake is seen. No abnormal pulmonary parenchymal hypermetabolic uptake is seen. Impression: Multiple hypermetabolic liver nodules consistent with metastatic disease. No other PET scintigraphy evidence to suggest metastatic disease seen. Electronically Signed by Lang Lane MD 08/05/2018 05:22 P
== END ==
LOC: M PLARAD 10:10
PROVIDERS: ATTEND Internal Medicine Hematology & Oncology
DX: C50.911 Malignant neoplasm of unspecified site of right female breast (principal); R93.2 Abnormal findings on diagnostic imaging of liver and biliary tract
CPT/HCPCS: 78815; A9552